=== PATIENT | female | born 2000 | race Hispanic/Latino ===

== ENCOUNTER 2024-09-10 21:20 | Emergency (ER) | payer SELFPAY ==
[~2024-09-10] VITALS: Ht 167.6 cm; Wt 63.5 kg
--- NOTE | 2024-09-10 21:34 | EKG ---
[facility] Test Date: 2024-09-10 Test Time: 21:32:32 Pat Name: JOELLE TUCKER Department: ED Room: Gender: F Mental Health Consultant: [facility] : 2000 Requested By: LANDON CHRISTENSEN Order Number: [id number] Reading MD: Jf Umana Measurements Intervals [place] Rate: 148 P: 82 HI: 142 QRS: -20 QRSD: 88 T: 184 QT: 249 QTc: 392 Interpretive Statements Sinus tachycardia No previous ECG available for comparison Electronically Signed On 09-12-2024 12:32:08 CDT by Jf Umana Please click the below link to view image of tracing.
--- NOTE | 2024-09-10 21:35 | NUR ---
POISON CONTROL RECOMMENDATIONS. MONITOR FOR HYPERTENSION OR TACHYCARDIA, RECOMMENDATION FOR CBC, CMP, TOXICOLOGY AND EKG, MONITOR FOR QRS WIDENING, IF > 110 MILLISECONDS THEN GIVE SODIUM BICARB. MONITOR FOR A MINIMUN 6 HRS, THEN REASSESS PATIENT TO SEE IF SHE IF BACK TO BASELINE. RECOMMENDATIONS FOR ATIVAN OR BENZO'S
[2024-09-10] MEDS: 0.9%NACL 1000ML 1,000 ML IV ONE (21:42)
[2024-09-10 22:10] LABS: CARBON DIOXIDE 21 mmol/L (21-32); CHLORIDE 105 mmol/L (101-111); CREATININE 0.9 mg/dL (0.5-1.0); GLOMERULAR FILTR. RATE CALC 93 mL/min (>90); GLUCOSE,RANDOM 88 mg/dL (70-105); POTASSIUM 3.2 mmol/L (3.5-5.1); SODIUM SERUM 139 mmol/L (136-145); UREA NITROGEN, BLOOD 13 mg/dL (7-18)
[2024-09-10 22:16] LABS: ACETAMINOPHEN 2 mcg/mL (10-30); ALANINE AMINOTRANSFERASE 25 U/L (12-78); ALBUMIN 4.6 g/dL (3.5-5.0); ALCOHOL, BLOOD < 3 mg/dL (0-10); ASPARTATE AMINOTRANSFERASE 29 U/L (10-37); BILIRUBIN,DIRECT 0.2 mg/dL (0.0-0.3); TOTAL PROTEIN, SERUM 9.3 g/dL (6.0-8.3)
[2024-09-10 22:17] LABS: SALICYLATE < 2.8 mg/dL (2.8-20.0)
[2024-09-10 22:42] LABS: BASOPHILS # (AUTO) 0.05 K/uL (0.00-0.20); BASOPHILS % (AUTO) 0.7 % (0.0-5.0); EOSINOPHILS # (AUTO) 0.11 K/uL (0.00-0.70); EOSINOPHILS % (AUTO) 1.6 % (0.0-8.0); HEMATOCRIT 37.5 % (36-48); IMMATURE GRANULOCYTE ABSOLUTE 0.02 K/uL (0-1); LYMPHOCYTES % (AUTO) 28.3 % (21.0-51.0); MEAN CORPUSCULAR HEMOGLOBIN 28.6 pg (27.0-33.0); MEAN CORPUSCULAR HGB CONC 33.9 g/dL (32.0-36.0); MEAN CORPUSCULAR VOLUME 84.5 fL (79-99); MONOCYTES # (AUTO) 0.7 K/uL (0.1-1.0); MONOCYTES % (AUTO) 9.3 % (3.0-13.0); NEUTROPHILS # (AUTO) 4.2 K/uL (1.8-7.7); NEUTROPHILS % (AUTO) 59.8 % (40.0-77.0); PLATELET COUNT (AUTO) 283 K/uL (130-400); RED BLOOD CELL COUNT(AUTO) 4.44 MIL/uL (4.00-5.50); RED CELL DISTRIBUTION WIDTH 12.9 % (11.0-15.5)
[2024-09-10] MEDS: ondanSETRON 4MG INJ IVP ONE (22:53)
[2024-09-10] MEDS: ondanSETRON 4MG INJ ONE (22:53)
[2024-09-10] MEDS: 0.9%NACL 1000ML 1,000 ML IV SCH (22:54)
[2024-09-10 23:29] LABS: APPEARANCE,URINE CLOUDY (CLEAR); BACTERIA,URINE RARE /HPF (None Seen); BILIRUBIN,URINE NEGATIVE (NEGATIVE); COLOR,URINE COLORLESS (YELLOW); GLUCOSE, URINE (UA) NEGATIVE (NEGATIVE); KETONES,URINE NEGATIVE (NEGATIVE); LEUKOCYTE ESTERASE ,URINE NEGATIVE Leu/uL (NEGATIVE); NITRATE,URINE 1+ (NEGATIVE); OCCULT BLOOD,URINE MODERATE (NEGATIVE); PH,URINE 6.5 (5.0-8.0); PROTEIN,URINE NEGATIVE (NEGATIVE); RBC,URINE 0-1 /HPF (0-1); SQUAMOUS EPITHELIAL CELL,UR MANY /HPF (0-2); UROBILINOGEN,URINE 0.2 mg/dL (0.2-1.0)
[2024-09-10 23:31] LABS: AMPHET/METH SCREEN,URINE NEGATIVE (NEGATIVE); BARBITURATE SCREEN, URINE NEGATIVE (NEGATIVE); BENZODIAZEPINES SCREEN,URINE NEGATIVE (NEGATIVE); CANNABINOID SCREEN,URINE POSITIVE (NEGATIVE); COCAINE SCREEN,URINE NEGATIVE (NEGATIVE); OPIATE SCREEN,URINE NEGATIVE (NEGATIVE); PHENCYCLIDINE SCREEN,URINE NEGATIVE (NEGATIVE)
--- NOTE | 2024-09-11 00:37 | NUR ---
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 [phone]
--- NOTE | 2024-09-11 01:17 | ERN ---
General Chief Complaint: Overdose Stated Complaint: OVERDOSE Time Seen by MD: 21:23 Time Seen by Midlevel: 21:23 Source: patient History of Present Illness Initial Comments 23-year-old female who presents to the emergency department due to Benadryl overdose. Partner states patient was drinking alcohol and took approximately 15-20 pills of Benadryl 50 mg. Patient denies any abdominal pain, nausea, chest pain, shortness of breath or further associated symptoms. Denies suicide idea tion, homicide ideation, visual or auditory hallucinations. Patient states the overdose was an accident. Denies significant past medical history. Allergies: Coded Allergies: No Known Drug Allergies (Unverified Allergy, Unknown, 09/10/24) Past Medical History Past Medical History: No Pertinent History Past Surgical History: None ROS Dictation Constitutional: Negative for fever,chills, and weight loss Eyes: Negative for injury, pain,redness, and discharge ENT: Negative for injury,pain or swelling Cardiovascular: Negative for chest pain, palpitations, and edema Respiratory: Negative for shortness of breath, cough, and wheezing, Abdomen/GI: Negative for abdominal pain, nausea, vomiting, diarrhea, and constipation Back: Negative for injury and pain : Negative for painful urination, bleeding or discharge MS/Extremity: Negative for injury and deformity Skin: Negative for rash, and discoloration Neuro: Negative for headache, weakness, numbness, tingling, and seizure Psych: Negative for suicide ideation, homicidal ideation, and hallucinations Physical Exam Physical Exam Dictation General: awake, alert, no acute distress Head/Face: Normocephalic, atraumatic Eyes: PERRL, EOMI, normal conjunctiva ENT: oral cavity clear, oral mucosa moist Neck: Supple, normal range of motion Cardiovascular: Tachycardic, normal S1/S2 Respiratory: CTAB, no respiratory distress, no rales or wheezes Abdomen: Soft, non-tender, non-distended, no guarding or rebound. Skin: Warm, dry, normal turgor, no rash MS/Extremity: Pulses equal, no cyanosis, neurovascular intact, FROM Neuro: COAx4, GCS 15, strength 5/5, CN 2-12 intact, normal cerebellar exam, normal gait Psych: Normal behavior, mood, and affect normal Results Laboratory and Microbiology Lab and Micro Result Laboratory Tests Test 09/10/24 21:27 09/10/24 22:32 09/10/24 23:12 Sodium Level 139 mmol/L (136-145) Potassium Level 3.2 mmol/L (3.5-5.1) L Chloride Level 105 mmol/L (101-111) Carbon Dioxide Level 21 mmol/L (21-32) Blood Urea Nitrogen 13 mg/dL (7-18) Creatinine 0.9 mg/dL (0.5-1.0) Glomerular Filtration Rate Calc 93 mL/min (>90) Random Glucose 88 mg/dL (70-105) Total Calcium 9.4 mg/dL (8.5-10.1) Total Bilirubin 1.0 mg/dL (0.2-1.0) Direct Bilirubin 0.2 mg/dL (0.0-0.3) Aspartate Amino Transf (AST/SGOT) 29 U/L (10-37) Alanine Aminotransferase (ALT/SGPT) 25 U/L (12-78) Alkaline Phosphatase 63 U/L (50-136) Total Protein 9.3 g/dL (6.0-8.3) H Albumin 4.6 g/dL (3.5-5.0) Salicylates Level < 2.8 mg/dL (2.8-20.0) L Acetaminophen Level 2 mcg/mL (10-30) L Serum Alcohol < 3 mg/dL (0-10) White Blood Count 7.0 K/uL (4.8-10.8) Red Blood Count 4.44 MIL/uL (4.00-5.50) Hemoglobin 12.7 g/dL (12.0-16.0) Hematocrit 37.5 % (36-48) Mean Corpuscular Volume 84.5 fL (79-99) Mean Corpuscular Hemoglobin 28.6 pg (27.0-33.0) Mean Corpuscular Hemoglobin Concent 33.9 g/dL (32.0-36.0) Red Cell Distribution Width 12.9 % (11.0-15.5) Platelet Count 283 K/uL (130-400) Mean Platelet Volume 9.1 fL (7.5-10.5) Immature Granulocyte % (Auto) 0.3 % (0-1) Neutrophils (%) (Auto) 59.8 % (40.0-77.0) Lymphocytes (%) (Auto) 28.3 % (21.0-51.0) Monocytes (%) (Auto) 9.3 % (3.0-13.0) Eosinophils (%) (Auto) 1.6 % (0.0-8.0) Basophils (%) (Auto) 0.7 % (0.0-5.0) Neutrophils # (Auto) 4.2 K/uL (1.8-7.7) Lymphocytes # (Auto) 2.0 K/uL (1.0-4.8) Monocytes # (Auto) 0.7 K/uL (0.1-1.0) Eosinophils # (Auto) 0.11 K/uL (0.00-0.70) Basophils # (Auto) 0.05 K/uL (0.00-0.20) Absolute Immature Granulocyte (auto 0.02 K/uL (0-1) Nucleated Red Blood Cells 0.0 % (0.0-0.19) Serum Test, Qualitative NEGATIVE (NEGATIVE) Urine Color COLORLESS (YELLOW) Urine Appearance CLOUDY (CLEAR) H Urine pH 6.5 (5.0-8.0) Urine Specific [place] 1.006 (1.001-1.031) Urine Protein NEGATIVE mg/dL (NEGATIVE) Urine Glucose (UA) NEGATIVE mg/dL (NEGATIVE) Urine Ketones NEGATIVE mg/dL (NEGATIVE) Urine Occult Blood MODERATE (NEGATIVE) H Urine Nitrate 1+ (NEGATIVE) H Urine Bilirubin NEGATIVE mg/dL (NEGATIVE) Urine Urobilinogen 0.2 mg/dL (0.2-1.0) Urine Leukocyte Esterase NEGATIVE [place]/uL Urine RBC 0-1 /HPF (0-1) Urine WBC 2-5 /HPF (0-1) H Urine Squamous Epithelial Cells MANY /HPF (0-2) Urine Amorphous Crystals (Auto) RARE /LPF (None Seen) Urine Bacteria RARE /HPF (None Seen) Urine Opiates Screen NEGATIVE (NEGATIVE) Urine Barbiturates Screen NEGATIVE (NEGATIVE) Urine Phencyclidine Screen NEGATIVE (NEGATIVE) Urine Amphetamines Screen NEGATIVE (NEGATIVE) Urine Benzodiazepines Screen NEGATIVE (NEGATIVE) Urine Cocaine Screen NEGATIVE (NEGATIVE) Urine Marijuana (THC) Screen POSITIVE (NEGATIVE) H Labs Reviewed?: Yes EKG/XRAY/US/CT/MRI EKG Comment Date: 09/10/2024 Time: 21:32 Rate: 148 EKG interpretation: Sinus tachycardia, no STEMI, otherwise normal EKG Reviewed by ED Attending MDM MDM: Differential diagnosis: Overdose, suicide ideation Rationale: 23-year-old female who presents to the emergency department due to Benadryl overdose. Partner states patient was drinking alcohol and took approximately 15-20 pills of Benadryl 50 mg. Patient denies any abdominal pain, nausea, chest pain, shortness of breath or further associated symptoms. Denies suicide ideation, homicide ideation, visual or auditory hallucinations. Patient states the overdose was an accident. Denies significant past medical history. Poison control notified, recommended patient to be monitored for 6 hours. If QRS widening greater than 100 sodium bicarb recommended. Labs obtained CBC within normal limits, hypokalemia 3.2, serum negative, UA negative for urinary tract infection, salicylates acetaminophen and serum alcohol within normal limits. Urine drug screen positive for marijuana. Patient medically cleared in the ED, [facility] crisis line called for screener at 2:35am. Patient care transition to Dr. Stuart due to shift ending. Dr. Stuart transferred patient care to Dr. Acosta at 7am. Constable present to transfer patient over to [facility]. I independently interpreted the test that were performed, results were reviewed by me and considered findings on radiology if ordered. Medical management and examination interpretation discussions were had by me with other qualified healthcare professionals as indicated for the patient's c are. ED Course Orders Procedure Category Date Status Time Basic Metabolic Panel LAB 09/10/24 Complete 21:23 Urinalysis LAB 09/10/24 Complete W/Microscopic 21:23 Drug Screen Urine LAB 09/10/24 Complete 21:23 Alcohol, Blood LAB 09/10/24 Complete 21:23 12 Lead Ekg Tracing- EKG 09/10/24 Complete Technical 21:23 Hepatic Function Panel LAB 09/10/24 Complete 21:23 0.9%Nacl 1000ml (Ns PHA 09/10/24 Complete 1000ml) 21:30 Acetaminophen LAB 09/10/24 Complete 21:23 Salicylate LAB 09/10/24 Complete 21:23 Cbc With Differential LAB 09/10/24 Complete 21:59 Testing, LAB 09/10/24 Complete Serum Hcg 22:22 Ondansetron 4mg Inj PHA 09/10/24 Complete (Zofran 4mg Inj) 22:30 0.9%Nacl 1000ml (Ns PHA 09/10/24 Complete 1000ml) 23:00 Ondansetron 4mg Inj PHA 09/10/24 Complete (Zofran 4mg Inj) 22:31 Culture Urine NAREN 09/10/24 Complete 23:31 Potassium Bicarb/Cit PHA 09/11/24 Complete Ac 25meq (K-Lyte Ta 01:00 Current Medications Medications (Trade) Dose Ordered Sig/Suki Route PRN Reason Start Time Stop Time Status Last Admin Dose Admin Ondansetron HCl (zoFRAN 4MG INJ) 4 mg ONCE ONCE IVP 09/10/24 22:30 09/10/24 22:31 DC 09/10/24 22:53 Ondansetron HCl (zoFRAN 4MG INJ) 4 mg STK-MED ONCE .ROUTE 09/10/24 22:31 09/10/24 22:31 DC Potassium Bicarbonate (K-Lyte Tablet Eff 25 Meq Tablet.eff) 25 meq ONCE ONCE PO 09/11/24 01:00 09/11/24 01:01 DC 09/11/24 01:24 Sodium Chloride 1,000 ml @ 0 mls/hr ONCE ONCE IV 09/10/24 21:30 09/10/24 21:39 DC 09/10/24 21:42 Sodium Chloride 1,000 ml @ 150 mls/hr Q6H40M IV 09/10/24 23:00 09/11/24 08:26 DC 09/11/24 05:38 Vital Signs Date Time Temp Pulse Resp B/P (MAP) Pulse Ox O2 Delivery O2 Flow Rate FiO2 09/11/24 07:50 98.1 108 16 130/70 100 Room Air* 0 09/11/24 05:39 98.2 110 20 134/65 99 Room Air* 0 09/11/24 03:43 98.2 144 20 123/65 100 Room Air* 0 09/11/24 02:30 98.2 108 20 115/72 100 Room Air* 0 09/11/24 01:41 132 20 124/79 100 Room Air* 0 09/10/24 23:30 98.2 108 20 125/55 100 Room Air* 0 09/10/24 21:48 98.2 158 20 144/78 100 Room Air* 0 09/10/24 21:29 98.2 158 20 144/78 100 0 DX & DISP Disposition: Discharge (To psychiatric facility) Departure Impression: Primary Impression: Overdose Condition: Stable Referrals: SELF,REFERRAL (PCP) I performed the substantive portion of the visit. I have reviewed and per sonally made and approve the management plan that is documented in the notes by myself or the CLAIRE. I acknowledge full responsibility for the patient's management plan. LANDON CHRISTENSEN September 11, 2024 01:17
[2024-09-11] MEDS: PoTASSium BIcarbonate/CIT AC 25 MEQ TABLET.EFF PO ONE (01:24)
--- NOTE | 2024-09-11 01:42 | NUR ---
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 OVERDOSE PLAN OF CARE EXPLAINED TO PATIENT. PATIENT OK WITH WAITING TO SPEAK TO SCREENER. PATIENT DOES NOT WANT TO WAIT LONGER THAN THE RECOMMENDED TIME TO MONITOR BY POISON CONTROL.
--- NOTE | 2024-09-11 02:35 | NUR ---
[facility] crisis line called for screener
--- NOTE | 2024-09-11 03:40 | NUR ---
[facility] crisis line called for ETA, crisis line reached out to screener and call us back with an ETA of 15 min. Patient and significant other made aware
[2024-09-11 07:50] VITALS: BP 130/70; PULSE 108; RESP 16; TEMP 98; O2SAT 100
--- NOTE | 2024-09-11 07:55 | NUR ---
[facility] PRESENT FOR TRANSPORT
--- NOTE | 2024-09-11 08:00 | NUR ---
[facility] DEPARTED WITH PT TO [facility]
== END 2024-09-11 08:00 | disposition short-term general hospital (02) ==
LOC: EDH 21:20
DX: T45.0X1A Poisoning by antiallergic and antiemetic drugs, accidental (unintentional), initial encounter (principal); Z79.899 Other long term (current) drug therapy; Y92.89 Other specified places as the place of occurrence of the external cause
CPT/HCPCS: 99285; 96374; 80076; 80048; 80305; 84703; 85025; 87086 ×2; 87186; 36415; 93005; 81001; G0481; J7030 ×2; J2405